=== PATIENT | female | born 1990 | race Hispanic/Latino ===

== ENCOUNTER 2022-05-01 12:18 | Inpatient (IN) | payer BC, MEDICAID, SELFPAY ==
[2022-05-01] MEDS ORDERED: HYDROcodone/Acetaminophen 5/325 mg Tablet PO PRN (12:33)
[2022-05-01] MEDS ORDERED: Misoprostol 200 MCG TAB PR PRN (12:33)
[2022-05-01] MEDS ORDERED: Butorphanol Tartrate 1 MG/ML VIAL SLOW IVP PRN (12:33)
[2022-05-01] MEDS ORDERED: Promethazine HCl 25 MG/ML VIAL IM PRN ×2 (12:33→16:32)
[2022-05-01] MEDS ORDERED: Acetaminophen 500 MG TAB PO PRN (12:33)
[2022-05-01] MEDS ORDERED: Ondansetron PF 4 MG/2 ML Vial IVP PRN ×2 (12:33→16:32)
[2022-05-01] MEDS ORDERED: Methylergonovine 0.2 MG/ML VIAL IM PRN (12:33)
[2022-05-01] MEDS ORDERED: Carboprost 250 MCG/ML AMP IM PRN (12:33)
[2022-05-01] MEDS ORDERED: Diphenoxylate HCl/Atropine Tablet PO PRN (12:33)
[2022-05-01] MEDS ORDERED: Lidocaine 1% (PF) 30 ML VIAL SC PRN (12:33)
[2022-05-01] MEDS ORDERED: Tranexamic Acid 1,000 MG in Sodium Chloride 0.9% 250 ML 250 ML IVPB PRN (12:33)
[2022-05-01] MEDS ORDERED: hydrALAZINE 20 MG/ML VIAL SLOW IVP PRN (12:33)
[2022-05-01] MEDS ORDERED: Ibuprofen 800 MG TAB PO PRN (12:33)
[2022-05-01] MEDS ORDERED: NS w/ Oxytocin 30 units 500 ML IV SCH ×2 (12:45)
[2022-05-01 14:42] LABS: Hemoglobin 11.2 g/dL (12.0-15.5); Mean Corpuscular HGB CONC 33.1 g/dL (32.0-36.0); Mean Corpuscular Hemoglobin 26.7 pg (27.0-33.0); Mean Corpuscular Volume 80.5 fl (81.6-98.3); Mean Platelet Volume 10.7 fl (7.4-10.4); Platelet Count 156 10x3/uL (150-450); RBC Distribution Width 14.5 % (11.5-14.5); White Blood Cell (WBC) Count 11.9 10x3/uL (3.5-10.5)
[2022-05-01] MEDS ORDERED: Fentanyl 2 mcg/Bup 0.1% Cadd 100 ML ONE (14:59)
[2022-05-01 15:16] LABS: HBSAg Index 0.15 S/CO (0-0.99); Hep B Surf Ag Non-Reactive S/CO (NonReactive)
[2022-05-01 15:17] LABS: Syphilis Antibody Nonreactive (Nonreactive); Syphilis Antibody Index 0.04 S/CO (<1.00 Non-Reactive)
[2022-05-01] MEDS ORDERED: Fentanyl 100 MCG/2 ML VIAL ONE (15:30)
[2022-05-01 16:11] VITALS: BMI 32.0
[2022-05-01] MEDS ORDERED: Lactated Ringer's 500 ML IV PRN (16:32)
[2022-05-01] MEDS ORDERED: ePHEDrine Sulfate 50 MG/10 ML VIAL SLOW IVP PRN (16:32)
[2022-05-01] MEDS ORDERED: Naloxone HCl 0.4 mg/ml Vial IVP PRN ×2 (16:32)
[2022-05-01] MEDS ORDERED: Acetaminophen 325 MG TAB PO PRN (16:32)
[2022-05-01] MEDS ORDERED: diphenhydrAMINE 50 MG/ML VIAL IVP PRN (16:32)
[2022-05-01] MEDS ORDERED: Moisturizing Cream (Eucerin) 113 GM JAR TOP PRN (16:32)
[2022-05-01] MEDS ORDERED: Fentanyl 2 mcg/Bupivacaine 0.1% Cassette 100 ML EPIDURAL SCH (16:45)
[2022-05-01] MEDS ORDERED: Communication Order-Pharmacy FS SCH (16:45)
[2022-05-01] MEDS: Lactated Ringer's 1,000 ML IV SCH ×2 (19:24→21:00)
[2022-05-01] MEDS ORDERED: Misoprostol 200 MCG TAB ONE (22:26)
[2022-05-01] MEDS ORDERED: Methylergonovine 0.2 MG/ML VIAL ONE (22:27)
[2022-05-01] MEDS ORDERED: Carboprost 250 MCG/ML AMP ONE (22:27)
[2022-05-02] MEDS: Lactated Ringer's 1,000 ML IV SCH (04:52)
[2022-05-02] MEDS ORDERED: Ondansetron PF 4 MG/2 ML Vial IVP PRN (04:55)
[2022-05-02] MEDS ORDERED: Milk Of Magnesia 30 ML UDCUP PO PRN (04:55)
[2022-05-02] MEDS ORDERED: Bisacodyl 10 MG SUPP PR PRN (04:55)
[2022-05-02] MEDS ORDERED: Promethazine HCl 25 MG/ML VIAL IM PRN (04:55)
[2022-05-02] MEDS ORDERED: Benzocaine-Menthol 82.5 ML CAN TOP PRN (04:55)
[2022-05-02] MEDS ORDERED: HYDROcodone/Acetaminophen 5/325 mg Tablet PO PRN (04:55)
[2022-05-02] MEDS ORDERED: NS w/ Oxytocin 30 units 500 ML IV SCH (04:55)
[2022-05-02] MEDS ORDERED: diphenhydrAMINE 25 MG CAP PO PRN (04:55)
[2022-05-02] MEDS ORDERED: Lanolin Ointment 7 GM TUBE TOP PRN (04:55)
[2022-05-02] MEDS ORDERED: Boostrix 0.5 ML (Tdap) VIAL (>/=7 yrs of age) IM ONE (04:55)
[2022-05-02] MEDS ORDERED: hydrALAZINE 20 MG/ML VIAL SLOW IVP PRN (04:55)
[2022-05-02] MEDS: Ibuprofen 800 MG TAB PO SCH ×3 (14:05→21:08)
[2022-05-02] MEDS: Docusate 100 MG CAP PO SCH ×2 (14:47→21:08)
[2022-05-02] MEDS: Ferrous Sulfate 325 MG TAB PO SCH ×2 (14:47→14:52)
[2022-05-02] MEDS: Prenatal Vitamin 1 TAB PO SCH (14:47)
[2022-05-03] MEDS: Ibuprofen 800 MG TAB PO SCH (05:32)
[2022-05-03 07:51] VITALS: BP 119/58; TEMP 98.1
[2022-05-03] MEDS: Ferrous Sulfate 325 MG TAB PO SCH (08:26)
[2022-05-03] MEDS: Prenatal Vitamin 1 TAB PO SCH (08:27)
[2022-05-03] MEDS: Docusate 100 MG CAP PO SCH (08:27)
== END 2022-05-03 10:50 | disposition home or self-care (01) | DRG 807 ==
LOC: CSHLD 12:18 → CSHPP 05-02 14:20
PROVIDERS: ADMIT Family Medicine; ATTEND Family Medicine
PROC: 10907ZC Drainage of Amniotic Fluid, Therapeutic from Products of Conception, Via Natural or Artificial Opening (ICD-10-PCS; principal; 2022-05-01)
PROC: 10E0XZZ Delivery of Products of Conception, External Approach (ICD-10-PCS; 2022-05-01)
DX: O69.81X0 Labor and delivery complicated by cord around neck, without compression, not applicable or unspecified (principal); Z37.0 Single live birth; Z3A.39 39 weeks gestation of pregnancy
CPT/HCPCS: 51702; 85027; 86780; 86850; 86900; 86901; 87340; 99285; J2210; J2590; J7120